=== PATIENT | female | born 1990 | race African-American/Black ===

== ENCOUNTER 2017-05-20 16:01 | Emergency (ER) | payer MEDICAID, OTHER ==
[~2017-05-20] VITALS: Ht 177.8 cm; Wt 88.5 kg
[~2017-05-20 16:01] MED LIST: ALBUTEROL SULF8.5 GM INH; AZITHROMYCIN250 MG ORAL; MEDROL DOSEPAK4 MG ORAL; NORCO 5-325 TA1 EACH ORAL
[2017-05-20] MEDS ORDERED: NKM (16:14)
[2017-05-20 16:47] LABS: BILIRUBIN, URINE NEGATIVE (NEGATIVE); COLOR,URINE AMBER; GLUCOSE, URINE (UA) NEGATIVE (NEGATIVE); KETONES,URINE NEGATIVE (NEGATIVE); LEUKOCYTE ESTERASE ,URINE 2+ (NEGATIVE); NITRITE,URINE NEGATIVE (NEGATIVE); PH,URINE 6 (4.5-8.0); PROTEIN,URINE NEGATIVE (NEGATIVE); UROBILINOGEN,URINE 1 MG/DL (0.0-1.0)
[2017-05-20 16:54] LABS: APPEARANCE,URINE SLIGHTLY CLOUDY
[2017-05-20] MEDS ORDERED: DIFLUCAN150 MG PO (17:25)
[2017-05-20] MEDS ORDERED: TERBINAFINE HC250 MG PO (17:25)
[2017-05-20] MEDS ORDERED: BENADRYL25 MG ORAL (17:25)
[2017-05-20] MEDS ORDERED: CEPHALEXIN500 MG ORAL (17:25)
[2017-05-20 17:30] VITALS: BP 98/65
[2017-05-20 17:31] VITALS: BP 98/65
--- NOTE | 2017-05-20 21:23 | Emergency Room Report ---
History of Present Illness General Chief Complaint: Skin Rash/Abscess Source: Patient Present Illness HPI The patient is a 27-year-old female presenting for multiple complaints including rash and possible UTI. She states that she first noticed a rash around her right neck 3 weeks prior. She states that this was scaly and itchy. She tried both topical steroids and antifungal creams. These did not help. She states that the lesions then began to spread around her body. She states that these are itchy. She denies any pain. She denies any fever or chills. She denies anyone else in the house having these symptoms. She also developed dysuria and increased frequency over the past week. She states that she has had a UTI in the past and this feels the same. She denies any other symptoms including back pain Allergies: Coded Allergies: PENICILLINS (Unverified Allergy, Unknown, 11/09/14) Patient History Past Medical History: see triage record Pertinent Family History: none Last Menstrual Period: 05/07/17 Reviewed Nursing Documentation: PMH: Agreed, PSxH: Agreed Nursing Documentation-PMH Past Medical History: No Stated History Review of Systems All Other Systems: negative except mentioned in HPI Physical Exam Vital Signs Date Time Temp Pulse Resp B/P (MAP) Pulse Ox O2 Delivery O2 Flow Rate FiO2 05/20/17 16:10 99.0 95 16 124/66 95 Room Air 99.0 Sp02 EP Interpretation: reviewed, normal General Appearance: no apparent distress, alert, GCS 15, non-toxic Head: normocephalic, atraumatic Eyes: bilateral eye normal inspection, bilateral eye PERRL ENT: hearing grossly normal, normal pharynx, no angioedema, normal voice Neck: full range of motion, supple/symm/no masses Respiratory: chest non-tender, lungs clear, normal breath sounds, speaking full sentences Cardiovascular #1: regular rate, rhythm, no edema Musculoskeletal: back normal, gait/station normal, normal range of motion, non- tender Neurologic: alert, oriented x3, responsive, motor strength/tone normal, sensory intact, speech normal Psychiatric: judgement/insight normal, memory normal, mood/affect normal, no suicidal/homicidal ideation Skin: rash - diffuse lesions with scaling, erythema, raised border Medical Decision Making PA Attestation Dr. Almonte is my supervising physician. Patient management was discussed with my supervising physician Diagnostic Impression: Primary Impression: Rash Additional Impression: UTI (urinary tract infection) Qualified Codes: N30.00 - Acute cystitis without hematuria ER Course The patient is a 27-year-old female presenting for multiple complaints including rash and possible UTI. Ddx considered include but not limited to insect bite, tinea, pityriasis rosea, contact dermatitis, eczema, cellulitis Differential diagnosis considered but not limited to: UTI, BV, yeast infection, pyelonephritis, PID, PE: Vitals WNL. NAD. Abdomen: Normal appearance. Non distended. No ecchymosis. Normal BS. Abd soft and non tender. No McBurney point tenderness. No guarding. No CVA tenderness Skin: diffuse lesions with scaling, erythema, raised border Urinalysis is consistent with urinary tract infection The patient discharged home with a prescription for Macrobid for UTI, systemic antifungal for tinea corporis, and Benadryl and is given ER precautions. She is given one dose of Diflucan to be completed at the end of her antibiotic course as she states she frequently obtains yeast infections Laboratory Tests Test 05/20/17 16:30 Urine Color Elvie Urine Appearance Slightly cloudy Urine pH 6 (4.5-8.0) Urine Specific [place] 1.010 (1.005-1.035) Urine Protein Negative (NEGATIVE) Urine Glucose (UA) Negative (NEGATIVE) Urine Ketones Negative (NEGATIVE) Urine Occult Blood 1+ (NEGATIVE) H Urine Nitrite Negative (NEGATIVE) Urine Bilirubin Negative (NEGATIVE) Urine Ictotest Negative Urine Urobilinogen 1 MG/DL (0.0-1.0) H Urine Leukocyte Esterase 2+ (NEGATIVE) H Urine RBC 2-4 /HPF (0 - 2) H Urine WBC 5-10 /HPF (0 - 2) H Urine Squamous Epithelial Cells Few /LPF (NONE/OCC) Urine Bacteria Few /HPF (NONE) Urine HCG, Qualitative Negative Lab Results Impression There are white blood cells and bacteria Last Vital Signs Date Time Temp Pulse Resp B/P (MAP) Pulse Ox O2 Delivery O2 Flow Rate FiO2 05/20/17 17:31 97.9 86 20 98/65 99 Room Air 97.9 Status: improved Disposition: HOME, SELF-CARE Condition: Improved Scripts Terbinafine Hcl* (LAMISIL*) 250 Mg Tablet 250 MG PO DAILY, #21 TAB Prov: DONNA KIM.A. 05/20/17 Diphenhydramine Hcl* (BENADRYL*) 25 Mg Capsule 25 MG ORAL Q6H Y for Itching, #30 CAP Prov: HALIANDONNA P.A. 05/20/17 Fluconazole (DIFLUCAN) 150 Mg Tablet 150 MG PO DAILY, #1 TAB Prov: ALFREDOZIANDONNA P.A. 05/20/17 Cephalexin* (KEFLEX*) 500 Mg Capsule 500 MG ORAL EVERY 12 HOURS, #14 CAP 0 Refills Prov: TERZIANMJY P.A. 05/20/17 Patient Instructions: Rash, Urinary Tract Infection Additional Instructions: I discussed my findings with the patient. All questions and concerns have been answered. Treatment and medication compliance have been addressed. I advised the patient that they need to follow up with PMD in 3-5 days. Return to ED if symptoms worsen, new symptoms arise, or if needed for any reason. Patient verbalized understanding of discharge instructions. Please see dermatology as was instructed DONNA KIM May 20, 2017 21:23
== END 2017-05-20 17:32 | disposition home or self-care (01) ==
LOC: EMR 16:39
DX: R21 Rash and other nonspecific skin eruption (principal); N39.0 Urinary tract infection, site not specified; Z88.0 Allergy status to penicillin
CPT/HCPCS: 81003; 81025; 99284